=== PATIENT | female | born 1960 | race Caucasian/White ===

== ENCOUNTER 2016-11-19 16:03 | Emergency (ER) | payer BC ==
[2016-11-19 16:11] VITALS: TEMP 97.8
[2016-11-19 17:35] LABS: Basophils % (A) 1 %; CH 31.4; CHCM 34.4; Eosinophils # (A) 0.1 k/uL (0-0.7); Eosinophils % (A) 1 %; HCT 38.7 % (34.0-46.0); HDW 2.51; HGB 13.1 gm/dL (11.4-16.0); Luc # (Auto) 0.23; Luc % (Auto) 3; Lymphocytes # (A) 2.9 k/uL (1.0-4.8); Lymphocytes % (A) 40 %; MCH 30.9 pg (25.0-35.0); MCHC 33.8 g/dL (31.0-37.0); MCV 91.5 fL (80.0-100.0); Mean Platelet Volume 6.7; Monocytes # (A) 0.3 k/uL (0-1.0); Monocytes % (A) 5 %; Neutrophils # (A) 3.7 k/uL (1.3-7.7); Neutrophils % (A) 51 %; RBC 4.23 m/uL (3.80-5.40); RDW 12.3 % (11.5-15.5); WBC 7.4 k/uL (3.8-10.6); WBC (Perox) 7.19
[2016-11-19 17:44] LABS: Anion Gap 11 mmol/L; Blood Urea Nitrogen 15 mg/dL (7-17); Calcium 9.6 mg/dL (8.4-10.2); Carbon Dioxide 23 mmol/L (22-30); Chloride 108 mmol/L (98-107); Glucose 86 mg/dL (74-99); Non-African American GFR(MDRD) >60 (>60 ml/min/1.73 sqM); Potassium 4.6 mmol/L (3.5-5.1); Sodium 142 mmol/L (137-145)
[2016-11-19 17:51] VITALS: RESP 18
--- NOTE | 2016-11-19 18:00 | XR ---
EXAMINATION TYPE: XR chest 2V DATE OF EXAM: 11/19/2016 COMPARISON: NONE INDICATION: Heart palpitations TECHNIQUE: Frontal and lateral views of the chest are obtained. FINDINGS: The heart size is normal. The pulmonary vasculature is normal. The lungs are clear. IMPRESSION: 1. No acute pulmonary process.
--- NOTE | 2016-11-19 18:36 | ED ---
Arrhythmia/Palpitations HPI - General Chief Complaint: Arrhythmia/Palpitations Stated Complaint: Palpitations Source: patient Mode of arrival: wheelchair Limitations: no limitations - History of Present Illness Initial Comments: 56-year-old female presented for evaluation of palpitations. She states that she's been having these for some time, since November 01 although her states that he has always noticed that she has had a skipped heartbeat. She states that when she was good she had been diagnosed with mitral valve prolapse however she has had no symptoms until now. Follow-up with her enroller and she states that she has no other symptoms including chest pain , shortness of breath, fevers, chills, nausea, vomiting, abdominal pain, lightheaded, dizziness. - Related Data Home Medications Medication Instructions Recorded Confirmed Calcium/Magnesium/Zinc 1 tab PO DAILY 11/19/16 11/19/16 [Knpzjkm-Dkinypfvk-Shrd Tablet] Estrogen,Con/M-Progest Acet 1 tab PO DAILY 11/19/16 11/19/16 [Prempro 0.45-1.5 mg Tablet] Allergies Allergy/AdvReac Type Severity Reaction Status Date / Time ofloxacin [From Floxin] Allergy Unknown Verified 11/19/16 16:46 Sulfa (Sulfonamide Allergy Unknown Verified 11/19/16 16:46 Antibiotics) Review of Systems ROS Statement: Those systems with pertinent positive or pertinent negative responses have been documented in the HPI. ROS Other: All systems not noted in ROS Statement are negative. Constitutional: Denies: fever, chills Eyes: Denies: eye pain, eye discharge ENT: Denies: ear pain, throat pain Respiratory: Denies: cough, dyspnea Cardiovascular: Reports: palpitations. Denies: chest pain, dyspnea on exertion , orthopnea, edema, syncope, paroxysmal nocturnal dyspnea Endocrine: Denies: fatigue, polydipsia, polyuria Gastrointestinal: Denies: abdominal pain, nausea, vomiting Genitourinary: Denies: urgency, dysuria Musculoskeletal: Denies: back pain, joint swelling Skin: Denies: rash, lesions Neurological: Denies: headache, weakness Psychiatric: Denies: anxiety, depression Hematological/Lymphatic: Denies: easy bleeding, easy bruising Past Medical History Past Medical History: No Reported History History of Any Multi-Drug Resistant Organisms: None Reported Past Surgical History: No Surgical Hx Reported Past Psychological History: No Psychological Hx Reported Smoking Status: Never smoker Past Alcohol Use History: None Reported Past Drug Use History: None Reported General Exam Limitations: no limitations General appearance: alert, in no apparent distress Head exam: Present: atraumatic, normocephalic, normal inspection Eye exam: Present: normal appearance, PERRL, EOMI. Absent: scleral icterus, conjunctival injection, periorbital swelling ENT exam: Present: normal exam, mucous membranes moist Neck exam: Present: normal inspection. Absent: tenderness, meningismus, lymphadenopathy Respiratory exam: Present: normal lung sounds bilaterally. Absent: respiratory distress, wheezes, rales, rhonchi, stridor Cardiovascular Exam: Present: regular rate, normal rhythm, normal heart sounds, other (PVCs and right bundle branch block noted on EKG). Absent: systolic murmur, diastolic murmur, rubs, gallop, clicks GI/Abdominal exam: Present: soft, normal bowel sounds. Absent: distended, tenderness, guarding, rebound, rigid Rectal exam: Present: deferred Extremities exam: Present: normal inspection, full ROM, normal capillary refill. Absent: tenderness, pedal edema, joint swelling, calf tenderness Back exam: Present: normal inspection Neurological exam: Present: alert, oriented X3, CN II-XII intact Psychiatric exam: Present: normal affect, normal mood Skin exam: Present: warm, dry, intact, normal color. Absent: rash Course Vital Signs 11/19/16 11/19/16 11/19/16 16:08 17:50 18:00 Temperature 97.8 F Pulse Rate 76 72 78 Respiratory 20 18 18 Rate Blood Pressure 184/82 152/67 136/69 O2 Sat by Pulse 100 95 94 L Oximetry 11/19/16 11/19/16 19:13 19:25 Temperature 97.8 F 97.8 F Pulse Rate 79 79 Respiratory 18 18 Rate Blood Pressure 168/79 168/79 O2 Sat by Pulse 99 99 Oximetry EKG Findings - EKG Comments: EKG Findings:: Sinus rhythm with frequent PVCs and a right bundle branch block. Ventricular rate 72, CYRUS 158, QRS 140, QT/QTc 440/481. Medical Decision Making - Medical Decision Making 56-year-old female presenting for evaluation of palpitations . EKG does show multiple PVCs occurring with a right bundle branch block. On physical examination she has no abnormalities with a normal neuro exam and cranial nerves II through XII intact without focal neurologic deficits and normal gait and station without ataxia. Lung is clear to auscultation bilaterally and PVCs once again noticed on cardiac auscultation. There is no lower extremity edema or swelling. Labs revealed no significant abnormalities and CXR showed no acute process. Pt has a HEART score of 2 with a risk of MACE at 0.9-1.7%. SHe was informed of all results and on reevaluation was having less PVCs and feeling better. Through shared decision making it was determined that she would be discharged with instructions to follow up with her PCP and to return to this facility if her symptoms should worsen or persist. The patient acknowledged an understanding of this information and agreed with this plan of care. - Lab Data Result diagrams: 11/19/16 16:29 11/19/16 16:29 Lab Results 11/19/16 11/19/16 11/19/16 Range/Units 16:29 16:29 16:29 WBC 7.4 (3.8-10.6) k/uL RBC 4.23 (3.80-5.40) m/uL Hgb 13.1 (11.4-16.0) gm/dL Hct 38.7 (34.0-46.0) % MCV 91.5 (80.0-100.0) fL MCH 30.9 (25.0-35.0) pg MCHC 33.8 (31.0-37.0) g/dL RDW 12.3 (11.5-15.5) % Plt Count 228 (150-450) k/uL Neutrophils % 51 % Lymphocytes % 40 % Monocytes % 5 % Eosinophils % 1 % Basophils % 1 % Neutrophils # 3.7 (1.3-7.7) k/uL Lymphocytes # 2.9 (1.0-4.8) k/uL Monocytes # 0.3 (0-1.0) k/uL Eosinophils # 0.1 (0-0.7) k/uL Basophils # 0.0 (0-0.2) k/uL Sodium 142 (137-145) mmol/L Potassium 4.6 (3.5-5.1) mmol/L Chloride 108 H (98-107) mmol/L Carbon Dioxide 23 (22-30) mmol/L Anion Gap 11 mmol/L BUN 15 (7-17) mg/dL Creatinine 0.78 (0.52-1.04) mg/dL Est GFR (MDRD) Af Amer >60 (>60 ml/min/1.73 sqM) Est GFR (MDRD) Non-Af >60 (>60 ml/min/1.73 sqM) Glucose 86 (74-99) mg/dL Calcium 9.6 (8.4-10.2) mg/dL Troponin I (0.000-0.034) ng/mL NT-Pro-B Natriuret Pep 119 pg/mL 11/19/16 Range/Units 16:29 WBC (3.8-10.6) k/uL RBC (3.80-5.40) m/uL Hgb (11.4-16.0) gm/dL Hct (34.0-46.0) % MCV (80.0-100.0) fL MCH (25.0-35.0) pg MCHC (31.0-37.0) g/dL RDW (11.5-15.5) % Plt Count (150-450) k/uL Neutrophils % % Lymphocytes % % Monocytes % % Eosinophils % % Basophils % % Neutrophils # (1.3-7.7) k/uL Lymphocytes # (1.0-4.8) k/uL Monocytes # (0-1.0) k/uL Eosinophils # (0-0.7) k/uL Basophils # (0-0.2) k/uL Sodium (137-145) mmol/L Potassium (3.5-5.1) mmol/L Chloride (98-107) mmol/L Carbon Dioxide (22-30) mmol/L Anion Gap mmol/L BUN (7-17) mg/dL Creatinine (0.52-1.04) mg/dL Est GFR (MDRD) Af Amer (>60 ml/min/1.73 sqM) Est GFR (MDRD) Non-Af (>60 ml/min/1.73 sqM) Glucose (74-99) mg/dL Calcium (8.4-10.2) mg/dL Troponin I <0.012 (0.000-0.034) ng/mL NT-Pro-B Natriuret Pep pg/mL Disposition Clinical Impression: Palpitations, Premature ventricular contraction on electrocardiography Disposition: HOME SELF-CARE Condition: Stable Instructions: Palpitations (ED) Referrals: None,Stated [Primary Care Provider] - 1-2 days Nahid Calabrese MD [STAFF PHYSICIAN] - 1-2 days Diego Nettles MD [STAFF PHYSICIAN] - 1-2 days Kamilla Porter MD [STAFF PHYSICIAN] - 1-2 days Eldon Case MD [STAFF PHYSICIAN] - 1-2 days Rina Case MD [STAFF PHYSICIAN] - 1-2 days Mara James MD [STAFF PHYSICIAN] - 1-2 days Mango Braxton MD [STAFF PHYSICIAN] - 1-2 days Aime Stewart MD [STAFF PHYSICIAN] - 1-2 days Time of Disposition: 19:06
[2016-11-19 19:14] VITALS: BP 168/79; PULSE 79
== END 2016-11-19 19:25 | disposition home or self-care (01) ==
LOC: EC 16:03
DX: R00.2 Palpitations (principal); I49.3 Ventricular premature depolarization; Z79.3 Long term (current) use of hormonal contraceptives; Z79.899 Other long term (current) drug therapy; Z88.1 Allergy status to other antibiotic agents; Z88.2 Allergy status to sulfonamides
CPT/HCPCS: 36415; 71020; 80048; 83880; 84484; 85025; 93005; 99285

== ENCOUNTER → 2016-11-22 | Outpatient (CLI) | payer BC | END | disposition home or self-care (01) | LOC: MMGSC 09:13 | PROVIDERS: ATTEND Family Medicine | DX: R03.0 Elevated blood-pressure reading, without diagnosis of hypertension (principal); R00.2 Palpitations | CPT/HCPCS: 36415; 80061; 83735; 84443 ==